=== PATIENT | female | born 1955 ===

== ENCOUNTER 2020-02-20 08:20 | Emergency (ER) | payer MEDICARE ==
[2020-02-20] MEDS ORDERED: Proparacaine 0.5% Opth 15 ML BOT ONE (08:42)
[2020-02-20] MEDS ORDERED: Tetracaine HCl 0.5% Ophth Soln 2 ML Bottle ONE (08:43)
== END 2020-02-20 10:13 | disposition home or self-care (01) ==
LOC: NAV ERS 08:20
DX: H57.12 Ocular pain, left eye (principal); E03.9 Hypothyroidism, unspecified; Z79.899 Other long term (current) drug therapy
CPT/HCPCS: 99283